=== PATIENT | female | born 1985 | race Caucasian/White ===

== ENCOUNTER 2016-06-21 08:23 | Emergency (ER) | payer BC ==
[2016-06-21 08:40] VITALS: BP 118/61
[2016-06-21] MEDS ORDERED: Ondansetron 4 MG Tab.DIS PO ONE (08:40)
[2016-06-21] MEDS ORDERED: Ketorolac 60 MG/2 ML SDV IM ONE (08:45)
--- NOTE | 2016-06-21 08:48 | EDM.PDOC ---
ED HPI GI/ABDOMINAL - General Chief Complaint: Gastrointestinal Problem Stated Complaint: pneumonia Time Seen by Provider: 06/21/16 08:24 Source of Information: Reports: Patient History Limitations: Reports: No limitations - History of Present Illness INITIAL COMMENTS - FREE TEXT/NARRATIVE: History of present illness: [] Patient has a history of asthma and several pneumonias in the past, she was recently diagnosed with "walking pneumonia" and put on Levaquin yesterday. She started having nausea vomiting today after taking the Levaquin. She states she has never had any fevers and chills with this episode but feels severe left- sided chest pain. She did not have chest x-ray or lab work done in the clinic yesterday. Review of systems: As per history of present illness and below otherwise all systems reviewed and negative. Past medical history: As per history of present illness and as reviewed below otherwise noncontributory. Surgical history: As per history of present illness and as reviewed below otherwise noncontributory. Social history: No reported history of drug or alcohol abuse. Family history: As per history of present illness and as reviewed below otherwise noncontributory. Physical exam: General: Well developed, well nourished in NAD HEENT: Atraumatic, normocephalic, pupils reactive, negative for conjunctival pallor or scleral icterus, mucous membranes moist, throat clear, neck supple, nontender, trachea midline. Lungs: Clear to auscultation, breath sounds equal bilaterally, chest nontender. Heart: S1S2, regular, negative for clicks, rubs, or JVD. Abdomen: Soft, nondistended, nontender. Negative for masses or hepatosplenomegaly. Negative for costovertebral tenderness. Pelvis: Stable nontender. Genitourinary: Deferred. Rectal: Deferred. Extremities: Atraumatic, negative for cords or calf pain. Neurovascular unremarkable. Neuro: Awake, alert, oriented. Cranial nerves II through XII unremarkable. Cerebellum unremarkable. Motor and sensory unremarkable throughout. Exam nonfocal. Diagnostics: [] Chest x-ray showing no lung disease abnormalities in the chest Therapeutics: [] Impression: [] Chest wall pain versus pleurisy Plan: [] Stop Levaquin, continue anti-inflammatories followup PMD Definitive disposition and diagnosis as appropriate pending reevaluation and review of above. 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 RN History: Reports: , Spontaneous - Infectious Disease History Infectious Disease History: Reports: Chicken pox, Shingles - Past Surgical History Female Surgical History: Reports: Other (see below) Other Female Surgeries/Procedures: Breast Augmentation Social & Family History - Family History Family Medical History: Noncontributory - Tobacco Use Smoking Status *Q: Never Smoker Second Hand Smoke Exposure: No - Caffeine Use Caffeine Use: Reports: Coffee Caffeine Use Comment: drinks 2-3 /day - Alcohol Use Days Per Week of Alcohol Use: 2 Number of Drinks Per Day: 2 Total Drinks Per Week: 4 - Recreational Drug Use Recreational Drug Use: No ED ROS GENERAL - Review of Systems Review Of Systems: See Below (See history of present illness) ED EXAM, GI/ABD - Physical Exam Exam: See Below (See history of present illness) Course - Vital Signs Last Recorded V/S: Last Vital Signs Temp 36.0 C 06/21/16 08:38 Pulse 82 06/21/16 08:38 Resp 20 06/21/16 08:38 BP 118/61 06/21/16 08:38 Pulse Ox 100 06/21/16 08:38 - Orders/Labs/Meds Orders: Active Orders 24 hr Category Date Time Status Chest 2V [CR] Stat Exams 06/21/16 08:40 Taken Meds: Medications Discontinued Medications Generic Name Dose Route Start Last Admin Trade Name Freq PRN Reason Stop Dose Admin Ketorolac Tromethamine 60 mg 06/21/16 08:45 06/21/16 09:09 Toradol IM 06/21/16 08:46 60 mg ONETIME ONE Administration Ondansetron HCl 4 mg 06/21/16 08:40 06/21/16 09:08 Zofran Odt PO 06/21/16 08:41 4 mg ONETIME ONE Administration Departure - Departure Time of Disposition: 09:31 Disposition: Home, Self-Care 01 Condition: good Clinical Impression: Pleurisy, Chest wall pain Forms: ED Department Discharge - My Orders Last 24 Hours: My Active Orders 06/21/16 08:40 Chest 2V [CR] Stat - Assessment/Plan Last 24 Hours: My Active Orders 06/21/16 08:40 Chest 2V [CR] Stat
--- NOTE | 2016-06-21 19:50 | CR ---
EXAM DATE: 06/21/16 PATIENT'S AGE: 30 Patient: CAYDEN SMALL Facility: [place], [place] Site . Site : 1985 Study: XRay Chest [id number]/10/2017 9:01:33 AM Ordering Physician: Cameron Draper Final Report: INDICATION: Pain. Short of breath. TECHNIQUE: PA and lateral views of the chest. COMPARISON: December 07, 2015. FINDINGS: The cardiac, mediastinal and hilar contours are normal. Normal pulmonary vasculature. Lungs are clear. No pleural fluid or pneumothorax. No acute bony abnormality. IMPRESSION: No signs of acute thoracic disease. Dictated by Ramy Tyler MD @ 06/21/2016 9:17:31 AM Dictated by: Ramy Tyler MD @ 06/21/2016 09:17:43 (Electronic Signature) Report Signed by Proxy and Original Signed Document filed in the Medical Record. MTDD
== END 2016-06-21 09:43 | disposition home or self-care (01) ==
LOC: MW.ED 08:23
DX: R09.1 Pleurisy (principal); R11.2 Nausea with vomiting, unspecified; Z79.899 Other long term (current) drug therapy
CPT/HCPCS: 71020; 96372; 99284; A9270; J1885; 99283

== ENCOUNTER → 2016-08-19 | Outpatient (CLI) | payer BC | END | disposition home or self-care (01) | LOC: MW.CHFP 09:50 | PROVIDERS: ATTEND Physician Assistant | DX: J02.9 Acute pharyngitis, unspecified (principal) | CPT/HCPCS: 87081; 87880 ==

== ENCOUNTER 2017-02-04 07:54 | Day surgery (SDC) | payer BC ==
[~2017-02-04 07:54] MED LIST: Bupivacaine 0.25% 10 ML SDV ONE; Lactated Ringers 1,000 ML IV SCH; Lidocaine 2% 5 ML SDV ONE; Methylene Blue 50 MG/10 ML Ampule ONE; Midazolam 1 MG/ML 2 ML SDV ONE; Ondansetron 4 MG/2 ML SDV ONE; Propofol 200 MG/20 ML SDV ONE; Rocuronium 10 MG/ML 10 ML Syringe ONE; fentaNYL 100 MCG/2 ML SDV ONE
--- NOTE | 2017-02-04 08:44 | PCM.PREANE ---
Preanesthetic Assessment - Anesthesia/Transfusion/Family Hx Anesthesia History: Prior Anesthesia Without Reaction Other Type of Anesthesia Reaction Comment: Denies any personal or family hx of bleeding problems Family History of Anesthesia Reaction: No Transfusion History: No Prior Transfusion(s) Intubation History: Unknown - Review of Systems General: No Symptoms Pulmonary: No Symptoms Cardiovascular: No Symptoms Gastrointestinal: No Symptoms Neurological: No Symptoms Other: Reports: None - Physical Assessment Height: 1.73 m Weight: 64.864 kg ASA Class: 2 Mental Status: Alert & Oriented x3 Airway Class: Mallampati = 2 Dentition: Reports: Normal Dentition Thyro-Mental Finger Breadths: 3 Mouth Opening Finger Breadths: 3 ROM/Head Extension: Full Lungs: Clear to Auscultation, Normal Respiratory Effort Cardiovascular: Regular Rate, Regular Rhythm - Allergies Allergies/Adverse Reactions: Allergies Allergy/AdvReac Type Severity Reaction Status Date / Time flaxseed Allergy Anaphylactic Verified 01/30/17 13:33 Shock - Blood Blood Available: No - Anesthesia Plan Pre-Op Medication Ordered: None - Acknowledgements Anesthesia Type Planned: General Anesthesia Pt an Appropriate Candidate for the Planned Anesthesia: Yes Alternatives and Risks of Anesthesia Discussed w Pt/Guardian: Yes Pt/Guardian Understands and Agrees with Anesthesia Plan: Yes PreAnesthesia Questionnaire HEENT History: Reports: Other (See Below) Other HEENT History: wears glasses Respiratory History: Reports: Asthma Genitourinary History: Reports: Renal Calculus [employer] History: Reports: Dysfunctional Uterine Bleeding, Psychiatric History: Reports: Anxiety - Infectious Disease History Infectious Disease History: Reports: Chicken Pox, Shingles - Past Surgical History Head Surgeries/Procedures: Reports: None HEENT Surgical History: Reports: Oral Surgery Other HEENT Surgeries/Procedures: wisdom teeth extraction Female Surgical History: Reports: Breast Implant - SUBSTANCE USE Smoking Status *Q: Never Smoker Second Hand Smoke Exposure: No Days Per Week of Alcohol Use: 2 Number of Drinks Per Day: 2 Total Drinks Per Week: 4 Recreational Drug Use History: No - HOME MEDS Home Medications: Home Meds Albuterol Sulfate [Proair Hfa] 2 puff INH ASDIRECTED PRN 06/21/16 [History] EPINEPHrine [Epipen] 1 injection SUBCUT ASDIRECTED PRN 01/30/17 [History] Loratadine [Claritin] 10 mg PO DAILY 10/19/17 [History] - CURRENT (IN HOUSE) MEDS Current Meds: Current Medications Lactated Ringer's (Ringers, Lactated) 1,000 mls @ 125 mls/hr IV ASDIRECTED [facility] Last Admin: 02/04/17 08:35 Dose: 125 mls/hr Discontinued Medications Bupivacaine HCl (Sensorcaine-Mpf 0.25%) Confirm Administered Dose 20 ml .ROUTE .STK-MED ONE Stop: 02/04/17 07:37 Fentanyl (Sublimaze) Confirm Administered Dose 100 mcg .ROUTE .STK-MED ONE Stop: 02/04/17 07:31 Lidocaine (Xylocaine-Mpf 2%) Confirm Administered Dose 5 ml .ROUTE .STK-MED ONE Stop: 02/04/17 07:30 Methylene Blue (Provayblue) Confirm Administered Dose 50 mg .ROUTE .STK-MED ONE Stop: 02/04/17 07:37 Midazolam HCl (Versed 1 Mg/Ml) Confirm Administered Dose 2 mg .ROUTE .STK-MED ONE Stop: 02/04/17 07:31 Ondansetron HCl (Zofran) Confirm Administered Dose 4 mg .ROUTE .STK-MED ONE Stop: 02/04/17 07:30 Propofol (Diprivan 20 Ml) Confirm Administered Dose 200 mg .ROUTE .STK-MED ONE Stop: 02/04/17 07:31 Rocuronium [place] (Zemuron) Confirm Administered Dose 100 mg .ROUTE .STK-MED ONE Stop: 02/04/17 07:30
[2017-02-04] MEDS ORDERED: Dexamethasone 4 MG/ML 5 ML MDV ONE (10:14)
[2017-02-04] MEDS ORDERED: diphenhydrAMINE 50 MG/ML SDV ONE (10:14)
[2017-02-04] MEDS ORDERED: HYDROmorphone 2 MG/ML Syringe ONE (10:25)
--- NOTE | 2017-02-04 11:04 | PCM.OPNOTE ---
- General Post-Op/Procedure Note Date of Surgery/Procedure: 02/04/17 Operative Procedure(s): diagnostic hysteroscopy fractional dilatation and curettage, operative laparoscopy with peritoneal biopsy and placement of Mirena IUD for menorrhagia. Findings: uterus anteverted sounded to 7.5 cm, normal uterine cavity, normal pelvis with no evidence of endometriosis, inflammatory tissue on posterior uterus biopsied, retrocecal appendix, normal appearing liver and gallbladded, no pelvic adhesions. Pre Op Diagnosis: menorrhagia, pelvic pain Post-Op Diagnosis: Same Anesthesia Technique: General ET Tube Primary Surgeon: My Henson Anesthesia Provider: Darnell Grimes Ride Mechanic: Melissa Cheney Pathology: endocervical curettings, endometrial curettings, biposy of posterior uterus peritoneum Fluid Replacement, Intraop: 1,800 EBL in mLs: 10 Drain/Tube Comments:: hysteroscopic deficit 115 ml NS Complications: None Condition: Good
[2017-02-04] MEDS ORDERED: fentaNYL 100 MCG/2 ML SDV ONE (11:16)
[2017-02-04] MEDS: fentaNYL 100 MCG/2 ML SDV IVPUSH PRN ×2 (11:17→11:27)
[2017-02-04] MEDS ORDERED: Promethazine 12.5 MG Supp RECTAL PRN (12:49)
--- NOTE | 2017-02-04 12:52 | PCM48HPAN ---
Post Anesthesia Note - EVALUATION WITHIN 48HRS OF ANESTHETIC Vital Signs in Normal Range: Yes Patient Participated in Evaluation: Yes Respiratory Function Stable: Yes Airway Patent: Yes Cardiovascular Function Stable: Yes Hydration Status Stable: Yes Pain Control Satisfactory: Yes Nausea and Vomiting Control Satisfactory: No (Pt is slightly nauseated, but wants to go home - suppository given ) Mental Status Recovered: Yes
[2017-02-04 14:57] VITALS: BP 132/58
--- NOTE | 2017-02-04 15:15 | OR ---
SURGEON: My Henson M.D. DATE OF PROCEDURE: 02/04/2017 PREOPERATIVE DIAGNOSIS: Menometrorrhagia and pelvic pain. POSTOPERATIVE DIAGNOSIS: Menometrorrhagia and pelvic pain. PROCEDURES: Diagnostic hysteroscopy, fractional D and C, operative laparoscopy with peritoneal biopsy and Mirena IUD placement for menorrhagia. ANESTHESIA: General endotracheal. FLUIDS: 1800 mL crystalloid. ESTIMATED BLOOD LOSS: Less than 10 mL. FINDINGS: The uterus was anteverted and sounded to 7.5 cm. The hysteroscopic evaluation of the uterus was completely normal. Bilateral tubal ostia were clearly identified. There was excellent visualization of the uterine cavity. There were no lesions, polyps or fibroids. Upon laparoscopic evaluation, the uterus, tubes and ovaries appeared normal. There were no implants to suggest endometriosis with careful inspection of the pelvic peritoneum. The round ligaments appeared normal. There was no evidence of any round ligament hernia or other hernia. The appendix appeared retrocecal. The liver and gallbladder appeared normal. There was an inflammatory filmy lesion on the posterior uterus that was biopsied. COMPLICATIONS: None known. DISPOSITION: Stable to recovery. BRIEF HISTORY: This is a 31-year-old female. She has a history of pelvic pain onset prior to menses with resolution during menses. This started prior to her last conception. Improved for approximately 20 minutes after delivery and now has recurred. By history, this is suspicious for endometriosis. She also has endometriosis history in her family and she does desire to proceed with evaluation with laparoscopy for endometriosis with risks discussed including bleeding, infection, injury to bowel, bladder, blood vessels, ureter or other organs, risk of thromboembolic event, and risk of anesthesia. Understanding all of these risks, she does desire to proceed with a laparoscopy with possible peritoneal biopsies, possible lysis of adhesions, and other surgery as indicated. Additionally, she has noted irregular and heavy bleeding. She is intolerant of the control pill and therefore she desires to proceed with hysteroscopic evaluation with possible polypectomy, possible myomectomy and a fractional D and C, followed by placement of the Mirena IUD for control of her abnormal bleeding. Risks were discussed including bleeding, infection, uterine perforation with injury to surrounding organs, risk of fluid overload with the IUD risk of perforation, malposition and expulsion. She also understands that there is a small risk of infection related to placement of the IUD. She has had negative STI screen. Understanding all of these risks, she does desire to proceed. DESCRIPTION OF PROCEDURE: With the patient in the dorsal lithotomy position and adequate general endotracheal anesthesia, the abdomen was prepped with chlorhexidine and the pelvis was prepped with Betadine and draped in usual fashion for laparoscopic vaginal surgery. SCDs were in place. The bladder had been drained with a straight cath and an appropriate time-out was held. Bimanual examination was performed revealing findings noted above. Speculum was placed in the vagina. The cervix was dilated to a 6-mm Hegar dilator. A 6-mm hysteroscope was placed into the uterine cavity. There was excellent visualization. There was no evidence of any lesions, polyps or fibroids and therefore the hysteroscope was carefully removed inspecting the cervix upon exiting which also appeared normal. Sharp curettage of the endocervix was then performed collecting the tissue with Cytobrush. This was sent for endocervical curettings and then sharp curettage of the uterus. Uterine cavity was performed at the 12, 3, 6, and 9 o'clock position with a moderate amount of tissue obtained. This being completed, the ZPercello uterine manipulator was placed into the uterine cavity. The speculum was removed from the vagina. The engine lathe set up operator tool's gloves were changed. Attention was then turned abdominally, where 3 mL of 0.25% Marcaine were injected inferior to the umbilicus. A 5-mm incision was made with a scalpel. The anterior abdominal wall was elevated. Veress needle was inserted. Opening pressure was 2 mmHg. CO2 was insufflated to develop an adequate pneumoperitoneum of 13 mmHg. The 5- mm port was then placed, followed by placement of the laparoscope with no evidence of any trauma from the port placement site. The uterus was elevated. The patient was placed in steep Trendelenburg position. The pelvis was carefully inspected in order to adequately inspect all of the tissues. A 2nd port was placed 2 cm medial and cephalad from the anterior superior iliac spine on the left utilizing Marcaine followed by a 5-mm incision followed by a 5-mm port. All of the pelvis was carefully inspected. Findings were recorded above. The only lesion that was identified was an inflammatory-type lesion on the posterior uterus which was biopsied and the base was then cauterized with monopolar cautery. Final inspection revealed complete hemostasis at low pressure and the abdomen was desufflated. The port sites were removed. The skin was closed with subcuticular suture of 4-0 Monocryl and the ZUMI uterine manipulator was then removed. The speculum was placed in the vagina. The anterior lip of the cervix was grasped. The IUD was retracted into it and the stop was set at 7.5 cm with the Allis on the anterior cervix and traction. The Mirena was placed to the uterine fundus. Released to the 1st stop, fully released to the 2nd stop and then the placement catheter was removed. String was trimmed to 3 cm. The instruments were removed from the vagina. Final sponge, needle, and instrument counts were reported as correct. There were no known complications. The patient was transferred to recovery in good condition. The Mirena IUD lot number is [id number] with expiration July of 2019. GUANAKITO CANALES /[id number]
== END 2017-02-04 13:00 | disposition home or self-care (01) ==
LOC: MW.SDS 07:54
PROVIDERS: ATTEND Obstetrics & Gynecology
DX: Z30.430 Encounter for insertion of intrauterine contraceptive device (principal); K66.0 Peritoneal adhesions (postprocedural) (postinfection); N92.1 Excessive and frequent menstruation with irregular cycle; J45.909 Unspecified asthma, uncomplicated; Z91.018 Allergy to other foods; Z98.890 Other specified postprocedural states; Z79.899 Other long term (current) drug therapy
CPT/HCPCS: 36415; 49321; 58300; 58558; 84703; 85027; A9270; J1100; J1170; J1200; J2250; J2405; J3010; J7120; 00952; 88305; J2704

== ENCOUNTER 2020-04-06 07:49 | Observation (INO) | payer SELFPAY ==
[2020-04-06] MEDS ORDERED: Ondansetron 4 MG/2 ML SDV IVPUSH ONE (08:10)
[2020-04-06] MEDS ORDERED: Ketorolac 15 MG/ML SDV IVPUSH ONE (08:10)
[2020-04-06] MEDS ORDERED: Sodium Chloride 0.9% 1,000 ML IV ONE (08:10)
--- NOTE | 2020-04-06 08:14 | EDM.PDOC ---
ED HPI GENERAL MEDICAL PROBLEM - General Chief Complaint: Abdominal Pain Stated Complaint: ABDOMINAL PAIN, VOMITING Time Seen by Provider: 04/06/20 07:55 Source of Information: Reports: Patient History Limitations: Reports: No Limitations - History of Present Illness INITIAL COMMENTS - FREE TEXT/NARRATIVE: She is a 34-year-old female who presents today for diffuse abdominal pain. The pain woke up at 2 AM this morning. Patient had crampy pain with vomiting. Patient reports she had a bowel movement earlier today was only a small amount. Patient denies any urinary symptoms fever chills or other complaints. Patient has had prior tubal ligation and laparotomy surgeries abdominal Pain Score (Numeric/FACES): 8 - Related Data Allergies Allergy/AdvReac Type Severity Reaction Status Date / Time flaxseed Allergy Anaphylactic Verified 04/06/20 08:10 Shock Home Meds: Home Meds Albuterol Sulfate [Proair Hfa] 2 puff INH ASDIRECTED PRN 06/21/16 [History] Acetaminophen/HYDROcodone [Mon[place] 325-5 MG] 1 - 2 tab PO Q6H PRN #15 tablet 04/06/20 [Rx] Past Medical History HEENT History: Reports: Other (See Below) Other HEENT History: wears glasses Respiratory History: Reports: Asthma Genitourinary History: Reports: Renal Calculus 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, Psychiatric History: Reports: Anxiety - Infectious Disease History Infectious Disease History: Reports: Chicken Pox, Shingles - Past Surgical History Head Surgeries/Procedures: Reports: None HEENT Surgical History: Reports: Oral Surgery Other HEENT Surgeries/Procedures: wisdom teeth extraction Female Surgical History: Reports: Breast Implant Social & Family History - Family History Family Medical History: No Pertinent Family History - Caffeine Use Caffeine Use: Reports: Coffee Caffeine Use Comment: drinks 2-3 /day ED ROS GENERAL - Review of Systems Review Of Systems: See Below Constitutional: Reports: No Symptoms HEENT: Reports: No Symptoms Respiratory: Reports: No Symptoms Cardiovascular: Reports: No Symptoms Endocrine: Reports: No Symptoms GI/Abdominal: Reports: Abdominal Pain, Nausea, Vomiting : Reports: No Symptoms Musculoskeletal: Reports: No Symptoms Skin: Reports: No Symptoms Neurological: Reports: No Symptoms Psychiatric: Reports: No Symptoms Hematologic/Lymphatic: Reports: No Symptoms Immunologic: Reports: No Symptoms ED EXAM, GENERAL - Physical Exam Exam: See Below Exam Limited By: No Limitations General Appearance: Alert, WD/WN Eye Exam: Bilateral Eye: EOMI, PERRL Respiratory/Chest: No Respiratory Distress, Lungs Clear GI/Abdominal: Normal Bowel Sounds, Soft, Non-Tender, No Distention, No Mass Neurological: Alert, Oriented, Normal Cognition, Normal Gait Course - Vital Signs Last Recorded V/S: Last Vital Signs Temp 99.0 F 04/06/20 14:32 Pulse 69 04/06/20 14:52 Resp 11 L 04/06/20 14:52 BP 116/67 04/06/20 14:52 Pulse Ox 98 04/06/20 14:52 - Orders/Labs/Meds Orders: Active Orders 24 hr Category Date Time Status Admission Status [Patient Status] [ADT] Routine ADT 04/06/20 12:47 Active Patient Status [ADT] Routine ADT 04/06/20 14:30 Active Ambulate [RC] .TID Care 04/06/20 14:31 Active Oxygen Therapy [RC] PRN Care 04/06/20 14:30 Active Verify Patient Consent Obtain [RC] ASDIRECTED Care 04/06/20 12:38 Active Vital Signs [RC] PER UNIT ROUTINE Care 04/06/20 14:30 Active Advance Diet Instructions [DIET] Diet 04/06/20 Breakfast Active Acetaminophen/HYDROcodone [[place] 325-5 MG] Med 04/06/20 14:29 Active 2 tab PO Q4H PRN HYDROmorphone [Dilaudid] Med 04/06/20 14:29 Active 0.5 mg IVPUSH Q1H PRN Ondansetron [Zofran] Med 04/06/20 14:29 Active 4 mg IVPUSH Q6H PRN ceFAZolin [Ancef] 2 gm Med 04/06/20 14:30 Pending Premix Bag 1 bag IV Q8H Resuscitation Status Routine Resus Stat 04/06/20 14:29 Ordered Medication Orders Hydrocodone Bitart/Acetaminophen ([place] 325-5 Mg) 2 tab PO Q4H PRN PRN Reason: Pain (moderate 4-6) Hydromorphone HCl (Dilaudid) 0.5 mg IVPUSH Q1H PRN PRN Reason: Pain (severe 7-10) Cefazolin Sodium/Dextrose 2 gm (/ Premix) 50 mls @ 100 mls/hr IV Q8H DONATO Stop: 04/06/20 22:59 Sodium Chloride (Normal Saline) 1,000 mls @ 125 mls/hr IV ASDIRECTED DONATO Last Admin: 04/06/20 15:21 Dose: 125 mls/hr Documented by: SEMICHR Ondansetron HCl (Zofran) 4 mg IVPUSH Q6H PRN PRN Reason: Nausea/Vomiting Labs: Laboratory Tests 04/06/20 04/06/20 04/06/20 Range/Units 08:00 08:00 08:04 WBC 12.13 H (4.0-11.0) K/uL RBC 4.76 (4.30-5.90) M/uL Hgb 14.2 (12.0-16.0) g/dL Hct 43.0 (36.0-46.0) % MCV 90.3 (80.0-98.0) fL MCH 29.8 (27.0-32.0) pg MCHC 33.0 (31.0-37.0) g/dL RDW Std Deviation 40.7 (28.0-62.0) fl RDW Coeff of Vega 12 (11.0-15.0) % Plt Count 282 (150-400) K/uL MPV 10.50 (7.40-12.00) fL Neut % (Auto) 87.4 H (48.0-80.0) % Lymph % (Auto) 7.8 L (16.0-40.0) % [place] % (Auto) 4.5 (0.0-15.0) % Eos % (Auto) 0.2 (0.0-7.0) % Baso % (Auto) 0.1 (0.0-1.5) % Neut # (Auto) 10.6 H (1.4-5.7) K/uL Lymph # (Auto) 1.0 (0.6-2.4) K/uL [place] # (Auto) 0.6 (0.0-0.8) K/uL Eos # (Auto) 0.0 (0.0-0.7) K/uL Baso # (Auto) 0.0 (0.0-0.1) K/uL Nucleated RBC % 0.0 /100WBC Nucleated RBCs # 0 K/uL Sodium 139 (136-145) mmol/L Potassium 3.8 (3.5-5.1) mmol/L Chloride 103 (98-107) mmol/L Carbon Dioxide 26.1 (21.0-32.0) mmol/L BUN 12 (7.0-18.0) mg/dL Creatinine 0.8 (0.6-1.0) mg/dL Est Cr Clr Drug Dosing 101.60 mL/min Estimated GFR (MDRD) > 60.0 ml/min Glucose 121 H (74-106) mg/dL Calcium 9.6 (8.5-10.1) mg/dL Magnesium 1.7 L (1.8-2.4) mg/dL Total Bilirubin 0.6 (0.2-1.0) mg/dL AST 7 L (15-37) IU/L ALT 13 L (14-63) IU/L Alkaline Phosphatase 49 (46-116) U/L Total Protein 7.6 (6.4-8.2) g/dL Albumin 4.4 (3.4-5.0) g/dL Globulin 3.2 (2.6-4.0) g/dL Albumin/Globulin Ratio 1.4 (0.9-1.6) Lipase 84 (73-393) U/L Urine Color YELLOW Urine Appearance CLEAR Urine pH 7.5 (5.0-8.0) Ur Specific [place] 1.020 (1.001-1.035) Urine Protein NEGATIVE (NEGATIVE) mg/dL Urine Glucose (UA) NEGATIVE (NEGATIVE) mg/dL Urine Ketones 15 H (NEGATIVE) mg/dL Urine Occult Blood NEGATIVE (NEGATIVE) Urine Nitrite NEGATIVE (NEGATIVE) Urine Bilirubin NEGATIVE (NEGATIVE) Urine Urobilinogen 0.2 (<2.0) EU/dL Ur Leukocyte Esterase NEGATIVE (NEGATIVE) Urine HCG, Qual (NEGATIVE) SARS-CoV-2 RNA (HUBER) (NEGATIVE) 04/06/20 04/06/20 Range/Units 08:04 11:36 WBC (4.0-11.0) K/uL RBC (4.30-5.90) M/uL Hgb (12.0-16.0) g/dL Hct (36.0-46.0) % MCV (80.0-98.0) fL MCH (27.0-32.0) pg MCHC (31.0-37.0) g/dL RDW Std Deviation (28.0-62.0) fl RDW Coeff of Vega (11.0-15.0) % Plt Count (150-400) K/uL MPV (7.40-12.00) fL Neut % (Auto) (48.0-80.0) % Lymph % (Auto) (16.0-40.0) % Todd % (Auto) (0.0-15.0) % Eos % (Auto) (0.0-7.0) % Baso % (Auto) (0.0-1.5) % Neut # (Auto) (1.4-5.7) K/uL Lymph # (Auto) (0.6-2.4) K/uL Todd # (Auto) (0.0-0.8) K/uL Eos # (Auto) (0.0-0.7) K/uL Baso # (Auto) (0.0-0.1) K/uL Nucleated RBC % /100WBC Nucleated RBCs # K/uL Sodium (136-145) mmol/L Potassium (3.5-5.1) mmol/L Chloride (98-107) mmol/L Carbon Dioxide (21.0-32.0) mmol/L BUN (7.0-18.0) mg/dL Creatinine (0.6-1.0) mg/dL Est Cr Clr Drug Dosing mL/min Estimated GFR (MDRD) ml/min Glucose (74-106) mg/dL Calcium (8.5-10.1) mg/dL Magnesium (1.8-2.4) mg/dL Total Bilirubin (0.2-1.0) mg/dL AST (15-37) IU/L ALT (14-63) IU/L Alkaline Phosphatase (46-116) U/L Total Protein (6.4-8.2) g/dL Albumin (3.4-5.0) g/dL Globulin (2.6-4.0) g/dL Albumin/Globulin Ratio (0.9-1.6) Lipase (73-393) U/L Urine Color Urine Appearance Urine pH (5.0-8.0) Ur Specific [place] (1.001-1.035) Urine Protein (NEGATIVE) mg/dL Urine Glucose (UA) (NEGATIVE) mg/dL Urine Ketones (NEGATIVE) mg/dL Urine Occult Blood (NEGATIVE) Urine Nitrite (NEGATIVE) Urine Bilirubin (NEGATIVE) Urine Urobilinogen (<2.0) EU/dL Ur Leukocyte Esterase (NEGATIVE) Urine HCG, Qual NEGATIVE (NEGATIVE) SARS-CoV-2 RNA (HUBER) NEGATIVE (NEGATIVE) Meds: Medications Generic Name Dose Route Start Last Admin Trade Name Tramaine PRN Reason Stop Dose Admin Hydrocodone Bitart/Acetaminophen 2 tab 04/06/20 14:29 [place] 325-5 Mg PO Q4H PRN Pain (moderate 4-6) Hydromorphone HCl 0.5 mg 04/06/20 14:29 Dilaudid IVPUSH Q1H PRN Pain (severe 7-10) Cefazolin Sodium/Dextrose 2 gm 50 mls @ 100 mls/hr 04/06/20 14:30 / Premix IV 04/06/20 22:59 Q8H DONATO Sodium Chloride 1,000 mls @ 125 mls/hr 04/06/20 14:45 04/06/20 15:21 Normal Saline IV 125 mls/hr ASDIRECTED DONATO Administration Ondansetron HCl 4 mg 04/06/20 14:29 Zofran IVPUSH Q6H PRN Nausea/Vomiting Discontinued Medications Generic Name Dose Route Start Last Admin Trade Name Tramaine PRN Reason Stop Dose Admin Bupivacaine HCl Confirm 04/06/20 12:47 Marcaine 0.5% Administered 04/06/20 12:48 Dose 30 ml .ROUTE .STK-MED ONE Fentanyl Confirm 04/06/20 12:43 Sublimaze Administered 04/06/20 12:44 Dose 250 mcg .ROUTE .STK-MED ONE Fentanyl 50 mcg 04/06/20 12:57 Sublimaze IVPUSH Q5M PRN Pain Glycopyrrolate Confirm 04/06/20 12:43 Robinul Administered 04/06/20 12:44 Dose 0.8 mg .ROUTE .STK-MED ONE Sodium Chloride 1,000 mls @ 999 mls/hr 04/06/20 08:10 04/06/20 08:20 Normal Saline IV 04/06/20 09:10 999 mls/hr .BOLUS ONE Administration Ertapenem 1 gm/ Sodium 50 mls @ 100 mls/hr 04/06/20 11:45 04/06/20 12:14 Chloride IV 04/06/20 12:14 100 mls/hr ONETIME ONE Administration Acetaminophen 1,000 mg/ Premix 100 mls @ 400 mls/hr 04/06/20 12:57 IV Q6H PRN Pain Iopamidol 100 ml 04/06/20 15:08 04/06/20 15:09 Isovue Multipack-370 (76%) IVPUSH 04/06/20 15:09 100 ml ONETIME STA Administration Ketorolac Tromethamine 15 mg 04/06/20 08:10 04/06/20 08:23 Toradol IVPUSH 04/06/20 08:11 15 mg ONETIME ONE Administration Ketorolac Tromethamine Confirm 04/06/20 12:43 Toradol Administered 04/06/20 12:44 Dose 30 mg .ROUTE .STK-MED ONE Lidocaine Confirm 04/06/20 12:43 Xylocaine-Mpf 2% Administered 04/06/20 12:44 Dose 5 ml .ROUTE .STK-MED ONE Midazolam HCl Confirm 04/06/20 12:43 Versed 1 Mg/Ml Administered 04/06/20 12:44 Dose 2 mg .ROUTE .STK-MED ONE Octyl Cyanoacrylate Confirm 04/06/20 12:47 Dermabond Advance Administered 04/06/20 12:48 Dose 1 applic .ROUTE .STK-MED ONE Ondansetron HCl 4 mg 04/06/20 08:10 04/06/20 08:20 Zofran IVPUSH 04/06/20 08:11 4 mg ONETIME ONE Administration Ondansetron HCl Confirm 04/06/20 12:43 Zofran Administered 04/06/20 12:44 Dose 4 mg .ROUTE .STK-MED ONE Propofol Confirm 04/06/20 12:42 Diprivan 20 Ml Administered 04/06/20 12:43 Dose 200 mg .ROUTE .STK-MED ONE Rocuronium [place] Confirm 04/06/20 12:43 Rocuronium [place] Administered 04/06/20 12:44 Dose 50 mg .ROUTE .STK-MED ONE Scopolamine Confirm 04/06/20 14:01 Transderm-Scop Administered 04/06/20 14:02 Dose 1.5 mg .ROUTE .STK-MED ONE Departure - Departure Time of Disposition: 15:24 Disposition: Still A Patient 30 Clinical Impression: Acute appendicitis - Discharge Information *PRESCRIPTION DRUG MONITORING PROGRAM REVIEWED*: Not Applicable *COPY OF PRESCRIPTION DRUG MONITORING REPORT IN PATIENT JEEVAN: Not Applicable Sepsis Event Note (ED) - Evaluation Sepsis Screening Result: No Definite Risk - Focused Exam Vital Signs: Vital Signs Temp Pulse Resp BP Pulse Ox 04/06/20 11:40 89 16 113/68 97 04/06/20 08:55 79 17 103/71 100 04/06/20 07:54 97.4 F 77 17 119/68 100 - My Orders Last 24 Hours: My Active Orders 04/06/20 12:47 Admission Status [Patient Status] [ADT] Routine - Assessment/Plan Last 24 Hours: My Active Orders 04/06/20 12:47 Admission Status [Patient Status] [ADT] Routine Assessment:: Patient is a 34-year-old female who presents today for diffuse abdominal pain that started 2 AM this morning. Patient abdomen is nontender on exam the patient looks uncomfortable. Will provide Zofran and Toradol. Will obtain labs and possibly CT scan.
[2020-04-06 08:34] LABS: BLOOD UREA NITROGEN,BUN 12 mg/dL (7.0-18.0); CARBON DIOXIDE,CO2 26.1 mmol/L (21.0-32.0); CHLORIDE,CL 103 mmol/L (98-107); GLUCOSE RANDOM 121 mg/dL (74-106); LIPASE 84 U/L (73-393); POTASSIUM,K 3.8 mmol/L (3.5-5.1); SODIUM,NA 139 mmol/L (136-145)
--- NOTE | 2020-04-06 11:02 | CT ---
CLINICAL INFORMATION: 34-year-old with diffuse abdominal pain. TECHNIQUE: Contrast-enhanced CT of the abdomen and pelvis was obtained. Coronal and sagittal reformatted images were obtained. Contrast: 100 mL of Isovue 370 intravenous contrast was injected uneventfully prior to image acquisition. Radiation Dose Estimate (Total Exam DLP): 431.4 mGy-cm. COMPARISON: None available. FINDINGS: Lower Chest: Bilateral breast prostheses are incompletely visualized. Lung bases: Mild bibasilar dependent atelectatic changes. No focal airspace opacities or pleural effusions. Heart/Pericardium: Unremarkable. Abdomen/Pelvis: Liver: Unremarkable. Gallbladder: Unremarkable. Spleen: Unremarkable. Adrenal glands: Unremarkable. Kidneys: Unremarkable. Pancreas: Unremarkable. Lymph nodes: No retroperitoneal, mesenteric, inguinal, or pelvic adenopathy by CT criteria. Bowel: No bowel obstruction. Markedly distended appendix in the lower mid abdomen (series 201, image 107; series 203, image 47) measuring up to 13 mm with wall thickening measuring up to 5 mm. There is apparent appendicular with at the no significant periappendiceal inflammatory changes are seen, however early appendicitis must be considered. Urinary bladder: Limited evaluation due to underdistention. No gross pathology. Reproductive structures: 2.4 cm left ovarian follicle with peripheral enhancement may represent a corpus luteal cyst. No abdominal/pelvis ascites or free intraperitoneal air. Musculoskeletal: : Visualized osseous structures are preserved. IMPRESSION: 1. Markedly distended appendix measuring up to 13 mm with wall thickening measuring up to 5 mm in the lower mid abdomen. No significant periappendiceal inflammatory changes are seen, however early appendicitis must be considered. 2. 2.4 cm left ovarian follicle with peripheral enhancement which may represent a corpus luteal cyst. These findings were discussed with Dr. Chuck Cruz of the emergency department on 04/06/2020 at 10:55 p.m. Please note that all CT scans at this facility use dose modulation, iterative reconstruction, and/or weight-based dosing when appropriate to reduce radiation dose to as low as reasonably achievable. Dictated by Raghu Melo MD @ Apr 06 2020 10:51AM Signed by Dr. Raghu Melo @ Apr 06 2020 11:01AM
[2020-04-06] MEDS ORDERED: Ertapenem 1 GM in Sodium Chloride 0.9% 50 ML IV ONE ×2 (11:31→11:45)
[2020-04-06] MEDS ORDERED: Propofol 200 MG/20 ML SDV ONE (12:42)
[2020-04-06] MEDS ORDERED: Ondansetron 4 MG/2 ML SDV ONE (12:43)
[2020-04-06] MEDS ORDERED: Ketorolac 30 MG/ML SDV ONE (12:43)
[2020-04-06] MEDS ORDERED: Glycopyrrolate 0.2 MG/ML SDV ONE (12:43)
[2020-04-06] MEDS ORDERED: fentaNYL 250 MCG/5 ML SDV ONE (12:43)
[2020-04-06] MEDS ORDERED: Midazolam 1 MG/ML 2 ML SDV ONE (12:43)
[2020-04-06] MEDS ORDERED: Rocuronium Bromide 50 MG/5 ML Syringe ONE (12:43)
[2020-04-06] MEDS ORDERED: Lidocaine 2% 5 ML SDV ONE (12:43)
[2020-04-06] MEDS ORDERED: Bupivacaine 0.5% 30 ML SDV ONE (12:47)
[2020-04-06] MEDS ORDERED: Octyl 2-Cyanoacrylate 1 Tube ONE (12:47)
[2020-04-06] MEDS ORDERED: fentaNYL 100 MCG/2 ML SDV IVPUSH PRN (12:57)
[2020-04-06] MEDS ORDERED: Acetaminophen 1,000 MG in Premix Bag 1 BAG IV PRN (12:57)
--- NOTE | 2020-04-06 12:57 | PCM.PREANE ---
Preanesthetic Assessment - Anesthesia/Transfusion/Family Hx Anesthesia History: Prior Anesthesia Without Reaction Other Type of Anesthesia Reaction Comment: Denies any personal or family hx of bleeding problems Family History of Anesthesia Reaction: No Transfusion History: No Prior Transfusion(s) Intubation History: Unknown - Review of Systems Gastrointestinal: Abdominal Pain - Physical Assessment NPO Status Date: 04/06/20 NPO Status Time: 00:05 Vital Signs: Last Vital Signs Temp 36.3 C 04/06/20 07:54 Pulse 89 04/06/20 11:40 Resp 16 04/06/20 11:40 BP 113/68 04/06/20 11:40 Pulse Ox 97 04/06/20 11:40 Height: 1.75 m Weight: 67 kg ASA Class: 2E - Lab Values: Laboratory Last Values WBC 12.13 K/uL (4.0-11.0) H 04/06/20 08:00 RBC 4.76 M/uL (4.30-5.90) 04/06/20 08:00 Hgb 14.2 g/dL (12.0-16.0) 04/06/20 08:00 Hct 43.0 % (36.0-46.0) 04/06/20 08:00 MCV 90.3 fL (80.0-98.0) 04/06/20 08:00 MCH 29.8 pg (27.0-32.0) 04/06/20 08:00 MCHC 33.0 g/dL (31.0-37.0) 04/06/20 08:00 RDW Std Deviation 40.7 fl (28.0-62.0) 04/06/20 08:00 RDW Coeff of Vega 12 % (11.0-15.0) 04/06/20 08:00 Plt Count 282 K/uL (150-400) 04/06/20 08:00 MPV 10.50 fL (7.40-12.00) 04/06/20 08:00 Neut % (Auto) 87.4 % (48.0-80.0) H 04/06/20 08:00 Lymph % (Auto) 7.8 % (16.0-40.0) L 04/06/20 08:00 [place] % (Auto) 4.5 % (0.0-15.0) 04/06/20 08:00 Eos % (Auto) 0.2 % (0.0-7.0) 04/06/20 08:00 Baso % (Auto) 0.1 % (0.0-1.5) 04/06/20 08:00 Neut # (Auto) 10.6 K/uL (1.4-5.7) H 04/06/20 08:00 Lymph # (Auto) 1.0 K/uL (0.6-2.4) 04/06/20 08:00 [place] # (Auto) 0.6 K/uL (0.0-0.8) 04/06/20 08:00 Eos # (Auto) 0.0 K/uL (0.0-0.7) 04/06/20 08:00 Baso # (Auto) 0.0 K/uL (0.0-0.1) 04/06/20 08:00 Nucleated RBC % 0.0 /100WBC 04/06/20 08:00 Nucleated RBCs # 0 K/uL 04/06/20 08:00 Sodium 139 mmol/L (136-145) 04/06/20 08:00 Potassium 3.8 mmol/L (3.5-5.1) 04/06/20 08:00 Chloride 103 mmol/L (98-107) 04/06/20 08:00 Carbon Dioxide 26.1 mmol/L (21.0-32.0) 04/06/20 08:00 BUN 12 mg/dL (7.0-18.0) 04/06/20 08:00 Creatinine 0.8 mg/dL (0.6-1.0) 04/06/20 08:00 Est Cr Clr Drug Dosing 101.60 mL/min 04/06/20 08:00 Estimated GFR (MDRD) > 60.0 ml/min 04/06/20 08:00 Glucose 121 mg/dL (74-106) H 04/06/20 08:00 Calcium 9.6 mg/dL (8.5-10.1) 04/06/20 08:00 Magnesium 1.7 mg/dL (1.8-2.4) L 04/06/20 08:00 Total Bilirubin 0.6 mg/dL (0.2-1.0) 04/06/20 08:00 AST 7 IU/L (15-37) L 04/06/20 08:00 ALT 13 IU/L (14-63) L 04/06/20 08:00 Alkaline Phosphatase 49 U/L (46-116) 04/06/20 08:00 Total Protein 7.6 g/dL (6.4-8.2) 04/06/20 08:00 Albumin 4.4 g/dL (3.4-5.0) 04/06/20 08:00 Globulin 3.2 g/dL (2.6-4.0) 04/06/20 08:00 Albumin/Globulin Ratio 1.4 (0.9-1.6) 04/06/20 08:00 Lipase 84 U/L (73-393) 04/06/20 08:00 Urine Color YELLOW 04/06/20 08:04 Urine Appearance CLEAR 04/06/20 08:04 Urine pH 7.5 (5.0-8.0) 04/06/20 08:04 Ur Specific [place] 1.020 (1.001-1.035) 04/06/20 08:04 Urine Protein NEGATIVE mg/dL (NEGATIVE) 04/06/20 08:04 Urine Glucose (UA) NEGATIVE mg/dL (NEGATIVE) 04/06/20 08:04 Urine Ketones 15 mg/dL (NEGATIVE) H 04/06/20 08:04 Urine Occult Blood NEGATIVE (NEGATIVE) 04/06/20 08:04 Urine Nitrite NEGATIVE (NEGATIVE) 04/06/20 08:04 Urine Bilirubin NEGATIVE (NEGATIVE) 04/06/20 08:04 Urine Urobilinogen 0.2 EU/dL (<2.0) 04/06/20 08:04 Ur Leukocyte Esterase NEGATIVE (NEGATIVE) 04/06/20 08:04 Urine HCG, Qual NEGATIVE (NEGATIVE) 04/06/20 08:04 SARS-CoV-2 RNA (HUBER) NEGATIVE (NEGATIVE) 04/06/20 11:36 - Allergies Allergies/Adverse Reactions: Allergies Allergy/AdvReac Type Severity Reaction Status Date / Time flaxseed Allergy Anaphylactic Verified 04/06/20 08:10 Shock - Acknowledgements Anesthesia Type Planned: General Anesthesia Pt an Appropriate Candidate for the Planned Anesthesia: Yes Alternatives and Risks of Anesthesia Discussed w Pt/Guardian: Yes Pt/Guardian Understands and Agrees with Anesthesia Plan: Yes PreAnesthesia Questionnaire HEENT History: Reports: Other (See Below) Other HEENT History: wears glasses Respiratory History: Reports: Asthma Gastrointestinal History: Reports: Cholelithiasis Genitourinary History: Reports: Renal Calculus [employer]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 Bleeding, Endometriosis, , Other (See Below) Other OB/BYN History: laparoscopy for endometriosis Psychiatric History: Reports: Anxiety - Infectious Disease History Infectious Disease History: Reports: Chicken Pox, Shingles - Past Surgical History Head Surgeries/Procedures: Reports: None HEENT Surgical History: Reports: Oral Surgery Other HEENT Surgeries/Procedures: wisdom teeth extraction Female Surgical History: Reports: Breast Implant - SUBSTANCE USE Tobacco Use Status *Q: Never Tobacco User Recreational Drug Use History: No - HOME MEDS Home Medications: Home Meds Albuterol Sulfate [Proair Hfa] 2 puff INH ASDIRECTED PRN 06/21/16 [History] - CURRENT (IN HOUSE) MEDS Current Meds: Current Medications Discontinued Medications Bupivacaine HCl (Marcaine 0.5%) Confirm Administered Dose 30 ml .ROUTE .STK-MED ONE Stop: 04/06/20 12:48 Fentanyl (Sublimaze) Confirm Administered Dose 250 mcg .ROUTE .STK-MED ONE Stop: 04/06/20 12:44 Glycopyrrolate (Robinul) Confirm Administered Dose 0.8 mg .ROUTE .STK-MED ONE Stop: 04/06/20 12:44 Sodium Chloride (Normal Saline) 1,000 mls @ 999 mls/hr IV .BOLUS ONE Stop: 04/06/20 09:10 Last Admin: 04/06/20 08:20 Dose: 999 mls/hr Documented by: Ertapenem 1 gm/ Sodium (Chloride) 50 mls @ 100 mls/hr IV ONETIME ONE Stop: 04/06/20 12:14 Last Admin: 04/06/20 12:14 Dose: 100 mls/hr Documented by: Ketorolac Tromethamine (Toradol) 15 mg IVPUSH ONETIME ONE Stop: 04/06/20 08:11 Last Admin: 04/06/20 08:23 Dose: 15 mg Documented by: Ketorolac Tromethamine (Toradol) Confirm Administered Dose 30 mg .ROUTE .STK-MED ONE Stop: 04/06/20 12:44 Lidocaine (Xylocaine-Mpf 2%) Confirm Administered Dose 5 ml .ROUTE .STK-MED ONE Stop: 04/06/20 12:44 Midazolam HCl (Versed 1 Mg/Ml) Confirm Administered Dose 2 mg .ROUTE .STK-MED ONE Stop: 04/06/20 12:44 Octyl Cyanoacrylate (Dermabond Advance) Confirm Administered Dose 1 applic .ROUTE .STK-MED ONE Stop: 04/06/20 12:48 Ondansetron HCl (Zofran) 4 mg IVPUSH ONETIME ONE Stop: 04/06/20 08:11 Last Admin: 04/06/20 08:20 Dose: 4 mg Documented by: Ondansetron HCl (Zofran) Confirm Administered Dose 4 mg .ROUTE .STK-MED ONE Stop: 04/06/20 12:44 Propofol (Diprivan 20 Ml) Confirm Administered Dose 200 mg .ROUTE .STK-MED ONE Stop: 04/06/20 12:43 Rocuronium [place] (Rocuronium Beccaria) Confirm Administered Dose 50 mg .ROUTE .STK-MED ONE Stop: 04/06/20 12:44
--- NOTE | 2020-04-06 13:47 | CONS ---
DATE OF CONSULTATION: 04/06/2020 DATE OF : 1985 PRIMARY CARE PHYSICIAN: ANGELA BLOCK MD REASON FOR CONSULT: Abdominal pain. HISTORY OF PRESENT ILLNESS: The patient is a pleasant 34-year-old female. She says yesterday evening she had some mild abdominal pain. She went to bed; however, the pain got worse around 2 to 3 o'clock this morning. She said she had fairly severe pain in more of her lower abdomen along with nausea and vomiting. She tried to just "tough it out," but finally decided to come into the ER this morning. She said she was also having some intermittent fevers and chills. The patient says the pain now is better after taking some pain medicines, but still kind of more in the lower abdomen. She denies any changes in her bowel habits. She did have a CT scan done, which I looked at the images and the report, and it does show a thick-walled appendix that is also dilated. There also looks to be a fecalith of the appendix. She does have kind of redundant cecum though and the appendix actually is more in the mid to almost left lower abdomen. I do not see any signs of perforation. Also noted that there appears to be a cyst in her left ovary. She also has a slightly elevated white cell count. PAST MEDICAL HISTORY: Asthma. CURRENT HOME MEDICATIONS: Albuterol inhaler 2 puffs p.r.n. ALLERGIES: No known drug allergies, but does have an allergy to flaxseeds. PAST SURGICAL HISTORY: 1. Tubal ligation. 2. States she has had a couple of surgeries for ovarian cysts. 3. Breast augmentation. FAMILY HISTORY: 1. Both grandfathers had heart disease. 2. Both grandmothers have breast cancer. REVIEW OF SYSTEMS: A complete 12+ review of systems was done and was negative, except for what is in the HPI. SOCIAL HISTORY: She denies illicit drug use. She denies any tobacco use. Occasional alcohol use. PHYSICAL EXAMINATION: GENERAL: The patient is lying comfortably in ER bed. She is alert and oriented. No acute distress. VITAL SIGNS: Temperature is 97.4, pulse is 89, blood pressure is 113/68, and satting 97% on room air. HEENT: Head is normocephalic and atraumatic. Mouth, mucous membranes are moist. No lesions noted. LUNGS: Clear to auscultation bilaterally. No rhonchi are heard. HEART: Regular rhythm. No murmur appreciated. ABDOMEN: Soft, nondistended. She does have some tenderness in her lower abdomen, slightly greater in mid, slightly left abdomen which correlates where appendix is on the CT scan. She also has a navel ring in place. No rebound tenderness. No peritoneal sounds. EXTREMITIES: No edema. NEUROMUSCULAR: No gross neurological or muscular deficit noted. LABORATORY DATA: White cell count is 12.13, hemoglobin is 14.2, platelet count is 282. Sodium 139, potassium 3.8, chloride 103, bicarb is 26.1, BUN is 12, creatinine 0.8, and glucose is 121. Urine test is negative. ASSESSMENT AND PLAN: This is a pleasant 34-year-old female who likely has early appendicitis. She has lower abdominal pain. It is slightly more to the left and midline which actually correlates where the appendix on her CT scan due to a somewhat redundant cecum. The appendix is dilated with thickened wall and a fecalith on the CT scan. She does have a slightly elevated white cell count. I did go over with the patient what the appendix was, went over the risks, goals, and alternatives of laparoscopic appendectomy. Risks include, but not limited to bleeding, infection, abscess formation, failure of staple line, need to convert to open hernia formation, injury to nearby structures, and that this could be something other than appendicitis. The patient understands. The patient would like to proceed with laparoscopic appendectomy. The patient wishes to be full code for procedure. She has received antibiotics from the ER. We will call the OR crew and do it when the OR is ready. Of note, a COVID test is pending. The patient states that she and her whole family had COVID 2 months ago. Her whole family and her had a bad cold, and everyone lost their sense of smell and taste. She says she has since regained it and feels fine now. She reports they did not officially get a swab done at that time. RAMIRO CANALES /[id number] ERROL
[2020-04-06] MEDS ORDERED: Scopolamine 1.5 MG Transdermal Patch ONE (14:01)
--- NOTE | 2020-04-06 14:28 | PCM.OPNOTE ---
- General Post-Op/Procedure Note Date of Surgery/Procedure: 04/06/20 Operative Procedure(s): Laparoscopic appendectomy Findings: indurated appendix dictation number [id number] Pre Op Diagnosis: acute appendicitis Post-Op Diagnosis: acute appendicitis Anesthesia Technique: General ET Tube Primary Surgeon: Kirill Mckay Pathology: appendix EBL in mLs: 5 Complications: None Condition: Fair
[2020-04-06] MEDS ORDERED: HYDROmorphone 2 MG/ML Syringe IVPUSH PRN (14:29)
[2020-04-06] MEDS ORDERED: Ondansetron 4 MG/2 ML SDV IVPUSH PRN (14:29)
[2020-04-06] MEDS ORDERED: Acetaminophen/HYDROcodone 325-5 MG Tab PO PRN (14:29)
[2020-04-06] MEDS ORDERED: ceFAZolin 2 GM in Premix Bag 1 BAG IV SCH (14:30)
[2020-04-06] MEDS ORDERED: Sodium Chloride 0.9% 1,000 ML IV SCH (14:45)
--- NOTE | 2020-04-06 15:02 | PCM.POSTAN ---
POST ANESTHESIA ASSESSMENT - MENTAL STATUS Mental Status: Alert - VITAL SIGNS Vital Signs: Last Vital Signs Temp 37.2 C 04/06/20 14:32 Pulse 69 04/06/20 14:52 Resp 11 L 04/06/20 14:52 BP 116/67 04/06/20 14:52 Pulse Ox 98 04/06/20 14:52 - RESPIRATORY Respiratory Status: Respiratory Rate WNL - CARDIOVASCULAR CV Status: Pulse Rate WNL - GASTROINTESTINAL GI Status: No Symptoms - POST OP HYDRATION Hydration Status: Adequate & Stable
[2020-04-06] MEDS ORDERED: Iopamidol 755 MG/ML 500 ML Multipack Bottle IVPUSH STA (15:08)
[2020-04-06] MEDS ORDERED: HYDROmorphone 1 MG/ML Syringe IVPUSH PRN (15:25)
--- NOTE | 2020-04-06 17:23 | OR ---
SURGEON: LINA WRIGHT MD DATE OF PROCEDURE: 04/06/2020 PREOPERATIVE DIAGNOSIS: Acute appendicitis. POSTOPERATIVE DIAGNOSIS: Acute appendicitis. PROCEDURE PERFORMED: Laparoscopic appendectomy. PRIMARY SURGEON: Lina Wright MD ANESTHESIA: General. SPECIMEN: Appendix. ESTIMATED BLOOD LOSS: 5 mL. COMPLICATIONS: None. FINDINGS: An indurated appendix with some reactive fluid in the pelvis. REASON FOR PROCEDURE: The patient is a pleasant 34-year-old female who yesterday had some vague abdominal pain that got worse throughout the evening. She had a lower abdominal pain with nausea and vomiting. She had a CT scan that did show a thickened appendix and dilated along with a likely appendicitis. She also had an elevated white cell count. I did go over with the patient risks, goals, and alternatives of the surgery. Risks include, but are not limited to, bleeding, infection, abscess formation, failure of staple line, injury of nearby structures, hernia formation, need to convert to open, that this could be something other than appendicitis. The patient understands. She wished to proceed with the surgery. DESCRIPTION OF PROCEDURE: The patient was brought back to the OR. She was already given preoperative antibiotics in the ER. She was prepped and draped in the usual sterile fashion. SCDs were placed. Kruse catheter was placed. Anesthesia provided by the Anesthesia team. After a time-out was performed, an infraumbilical incision was made. This was made down to the fascia. Gato was used to grab the base of the umbilical stalk, slightly elevate, and a Veress needle was inserted. Did pullback on a syringe and no succus or blood came back. There was a positive drop test. Now, insufflation was began and pneumoperitoneum was established. After pneumoperitoneum was established, a 5 mm trocar was placed under direct visualization with a 5 mm scope entered into the abdominal cavity. The abdomen was inspected. There appeared to be no entry wounds. There did appear to be some inflammatory fluid in the pelvis. Now, a 5 mm trocar was placed in the suprapubic area and a 12 mm was placed in the left lower abdomen. The patient was placed in a head-down position and airplaned toward myself. The appendix was identified. It was indurated and had a little bit of white exudative material on it, but no real signs of any perforation. Now, a small opening was made in the mesoappendix at the base of the appendix. The mesoappendix was then taken with Harmonic scalpel. There was good hemostasis. Now, a blue load linear stapler was placed across the base of the appendix junctioned with the cecum and the appendix was then removed. The staple line appeared intact. There was good hemostasis. The appendix was then removed in Endo Catch bag. The operative site was then inspected. There was good hemostasis. Again, the staple line was intact. Good hemostasis along the mesoappendix. Rest of the abdomen was then inspected. I did suction out what looked to be reactive fluid in the pelvis. She did have a cyst on her left ovary, a picture of this was taken. Now, the 12 mm trocar was removed and was closed using a Yuriy- Zulay with a 0 Vicryl. The pneumoperitoneum was released. Other two 5 mm trocars were removed. All the port sites were again injected with local and closed with 4-0 Monocryl and Dermabond. At the end of the case, sponge and needle counts were correct. The patient was transferred to recovery room in stable condition. RAMIRO CANALES /[id number]
--- NOTE | 2020-04-06 18:36 | PCM48HPAN ---
Post Anesthesia Note - EVALUATION WITHIN 48HRS OF ANESTHETIC Vital Signs in Normal Range: Yes Patient Participated in Evaluation: Yes Respiratory Function Stable: Yes Airway Patent: Yes Cardiovascular Function Stable: Yes Hydration Status Stable: Yes Pain Control Satisfactory: Yes Nausea and Vomiting Control Satisfactory: Yes Mental Status Recovered: Yes Vital Signs: Last Vital Signs Temp 36.5 C 04/06/20 15:10 Pulse 76 04/06/20 16:55 Resp 17 04/06/20 16:55 BP 104/68 04/06/20 16:55 Pulse Ox 100 04/06/20 16:55
[2020-04-06 18:57] VITALS: BP 96/56; PULSE 74
--- NOTE | 2020-04-06 19:52 | PN ---
SUBJECTIVE: The patient is postop laparoscopic appendectomy. The patient says she is feeling very good. She is feeling much better than before the surgery. She has tolerated quite a bit of water and even some chicken soup with no nausea or vomiting. She said pain is well controlled. Nurses report no issues. Vitals have been good and stable. OBJECTIVE: GENERAL: The patient is lying comfortably in her hospital bed. She is alert and oriented, in no acute distress. ABDOMEN: Soft and nondistended. Some minimal expected incisional tenderness. Incisions are clean, dry, and intact. Dermabond in place. ASSESSMENT AND PLAN: The patient is status post laparoscopic appendectomy. Appendix did not appear to be perforated at the time of surgery. The patient is requesting that she go home, she says she is feeling so well. I told her that she could go home if she want. I went over discharge instructions. I went over she may shower tomorrow. She should continue her regular diet. She is to do no strenuous activity or heavy lifting for at least 2 weeks after the surgery. She should follow up with me in clinic in 2 weeks to go over the pathology and for a postop visit. She should contact us or go to the ER if she has any nausea, vomiting, fevers, chills, drainage, erythema, or increasing abdominal pain. All the patient's questions were answered. The patient will be discharged. She does not need any home antibiotics, but was faxed in a script for Webster. The patient does say that she has leftover Webster from her previous abdominal surgery. I went over that she may use that as long as it has not and that she does not need to fill the one that was written. RAMIRO CANALES /[id number] ERROL
== END 2020-04-06 19:20 | disposition home or self-care (01) ==
LOC: MW.ED 07:49 → MW.SDS 12:25 → MW.MS 14:30
PROVIDERS: ADMIT Surgery; ATTEND Surgery
DX: K35.80 Unspecified acute appendicitis (principal); Z91.018 Allergy to other foods; Z98.890 Other specified postprocedural states; Z79.899 Other long term (current) drug therapy; Z01.812 Encounter for preprocedural laboratory examination; Z20.828 Contact with and (suspected) exposure to other viral communicable diseases
CPT/HCPCS: 36415; 44970; 74177; 80053; 81003; 81025; 83690; 83735; 85025; 87635; 96365; 96375; 99285; A9270; J1335; J1885; J2001; J2250; J2405; J2704; J3010; J3490; J7030; J7050; Q9967; 88304; 99284; U0002

== ENCOUNTER 2023-07-04 09:14 | Emergency (ER) | payer OTHER ==
[2023-07-04] MEDS: Sodium Chloride 0.9% 1,000 ML IV ONE (09:40)
[2023-07-04 10:14] LABS: A/G RATIO 0.9 (0.9-1.6); ALBUMIN 3.8 g/dL (3.4-5.0); BILIRUBIN TOTAL 0.4 mg/dL (0.2-1.0); C-REACTIVE PROTEIN 0.9 mg/dL (<0.3); CALCIUM 9.6 mg/dL (8.5-10.1); CARBON DIOXIDE,CO2 26.5 mmol/L (21.0-32.0); CREATININE 0.9 mg/dL (0.6-1.0); EST CRCL DRUG DOSING (CG) 84.39 mL/min; PROTEIN TOTAL,TP 7.8 g/dL (6.4-8.2)
[2023-07-04] MEDS: Dexamethasone 10 MG/ML SDV IVPUSH ONE (10:51)
[2023-07-04] MEDS: Iopamidol 755 MG/ML 500 ML Multipack Bottle IVPUSH STA (11:56)
[2023-07-04 12:21] LABS: BASOPHILS ABSOLUTE AUTO 0.02 K/uL (0.00-0.20); BASOPHILS PERCENT AUTO 0.3 % (0.0-1.0); EOSINOPHILS ABSOLUTE AUTO 0.12 K/uL (0.00-0.45); EOSINOPHILS PERCENT AUTO 2.1 % (0.0-6.0); HEMATOCRIT 35.1 % (37.0-47.0); HEMOGLOBIN 11.9 g/dL (12.0-16.0); IMMATURE GRAN ABSOLUTE AUTO 0.06 K/uL (0.00-0.05); LYMPHOCYTES ABSOLUTE AUTO 1.13 K/uL (1.00-4.80); LYMPHOCYTES PERCENT AUTO 19.5 % (24.0-44.0); MEAN CORPUSCULAR HEMOGLOBIN 29.9 pg (28.0-32.0); MEAN CORPUSCULAR HGB CONC 33.9 g/dL (32.0-36.0); MEAN CORPUSCULAR VOLUME 88.2 fL (83.0-99.0); MEAN PLATELET VOLUME 8.8 fL (9.4-12.3); MONOCYTES PERCENT AUTO 5.2 % (0.0-8.0); NEUTROPHILS ABSOLUTE AUTO 4.17 K/uL (1.80-7.70); NEUTROPHILS PERCENT AUTO 71.9 % (41.0-71.0); PLATELET COUNT,PLT 362 K/uL (150-400); RED BLOOD CELL COUNT 3.98 M/uL (4.10-5.30)
[2023-07-04] MEDS: Benzocaine 20% Topical Spray UD MUCMEM ONE (12:26)
[2023-07-04] MEDS: Ibuprofen 600 MG Tab PO ONE (13:10)
[2023-07-04] MEDS: traMADol 50 MG Tab PO ONE (13:11)
[2023-07-04 19:12] VITALS: BP 114/78; PULSE 77
== END 2023-07-04 13:40 | disposition home or self-care (01) ==
LOC: MW.ED 09:14
DX: J36 Peritonsillar abscess (principal); J45.909 Unspecified asthma, uncomplicated; Z86.16 Personal history of COVID-19; Z79.899 Other long term (current) drug therapy; Z88.8 Allergy status to other drugs, medicaments and biological substances
CPT/HCPCS: 36415; 42700; 70491; 80053; 84703; 85025; 86140; 96361; 96374; 99283; A9270; J1100; J7030; Q9967; 99284

== ENCOUNTER 2023-07-06 10:51 | Emergency (ER) | payer OTHER ==
[2023-07-06] MEDS: Sodium Chloride 0.9% 10 ML Syringe FLUSH PRN (11:26)
[2023-07-06] MEDS: Sodium Chloride 0.9% 1,000 ML IV ONE (11:26)
[2023-07-06] MEDS: Sodium Chloride 0.9% 2.5 ML Syringe FLUSH PRN (11:26)
[2023-07-06 11:32] LABS: BASOPHILS ABSOLUTE AUTO 0.03 K/uL (0.00-0.20); BASOPHILS PERCENT AUTO 0.4 % (0.0-1.0); EOSINOPHILS ABSOLUTE AUTO 0.19 K/uL (0.00-0.45); EOSINOPHILS PERCENT AUTO 2.6 % (0.0-6.0); HEMATOCRIT 37.9 % (37.0-47.0); HEMOGLOBIN 12.7 g/dL (12.0-16.0); IMMATURE GRAN ABSOLUTE AUTO 0.06 K/uL (0.00-0.05); IMMATURE GRAN PERCENT AUTO 0.8 % (0.0-0.4); LYMPHOCYTES ABSOLUTE AUTO 2.53 K/uL (1.00-4.80); LYMPHOCYTES PERCENT AUTO 34.5 % (24.0-44.0); MEAN CORPUSCULAR HEMOGLOBIN 29.5 pg (28.0-32.0); MEAN CORPUSCULAR HGB CONC 33.5 g/dL (32.0-36.0); MEAN CORPUSCULAR VOLUME 87.9 fL (83.0-99.0); MEAN PLATELET VOLUME 8.7 fL (9.4-12.3); MONOCYTES ABSOLUTE AUTO 0.76 K/uL (0.00-0.80); MONOCYTES PERCENT AUTO 10.4 % (0.0-8.0); NEUTROPHILS ABSOLUTE AUTO 3.76 K/uL (1.80-7.70); NEUTROPHILS PERCENT AUTO 51.3 % (41.0-71.0); PLATELET COUNT,PLT 425 K/uL (150-400); RED BLOOD CELL COUNT 4.31 M/uL (4.10-5.30); WHITE BLOOD CELL COUNT,WBC 7.33 K/uL (3.9-11.3)
[2023-07-06 11:55] LABS: A/G RATIO 1.1 (0.9-1.6); ALBUMIN 3.4 g/dL (3.4-5.0); BILIRUBIN TOTAL 0.4 mg/dL (0.2-1.0); CALCIUM 8.9 mg/dL (8.5-10.1); CARBON DIOXIDE,CO2 26.3 mmol/L (21.0-32.0); CREATININE 0.8 mg/dL (0.6-1.0); EST CRCL DRUG DOSING (CG) 91.81 mL/min; POTASSIUM,K 3.8 mmol/L (3.5-5.1); PROTEIN TOTAL,TP 6.5 g/dL (6.4-8.2)
[2023-07-06] MEDS: Iopamidol 755 MG/ML 500 ML Multipack Bottle IVPUSH STA (12:29)
[2023-07-06] MEDS: Lidocaine 2% with EPINEPHrine 1:200,000 20 ML SDV INJECT ONE (13:13)
[2023-07-06 13:40] VITALS: BP 115/70; PULSE 72
[2023-07-06] MEDS: Acetaminophen/HYDROcodone 325-5 MG Tab PO ONE (14:20)
[2023-07-06] MEDS: Ibuprofen 600 MG Tab PO ONE (14:20)
== END 2023-07-06 14:23 | disposition home or self-care (01) ==
LOC: MW.ED 10:51
DX: J36 Peritonsillar abscess (principal); J45.909 Unspecified asthma, uncomplicated; Z79.899 Other long term (current) drug therapy; Z91.048 Other nonmedicinal substance allergy status; Z75.8 Other problems related to medical facilities and other health care
CPT/HCPCS: 36415; 42700; 70491; 80053; 85025; 96360; 99283; A9270; J3490; J7030; Q9967; 99284

== ENCOUNTER 2024-09-01 19:43 | Emergency (ER) | payer OTHER | END 2024-09-01 19:59 | disposition left against medical advice (07) | LOC: MW.ED 19:43 | DX: Z53.21 Procedure and treatment not carried out due to patient leaving prior to being seen by health care provider (principal) ==